=== PATIENT | female | born 1935 | race Caucasian/White ===

== ENCOUNTER 2016-03-09 14:54 | Emergency (ER) | payer BC ==
[~2016-03-09] VITALS: Ht 160 cm; Wt 82.6 kg
[~2016-03-09 14:54] MED LIST: CALC500C70 PO; CINN1CAP2 PO; DIFL0.0519 OPR; GLC500 PO; LISI-789 PO; MAGN400T6 PO; MULT-845 PO; NEPA0.6D OPR; NTRGSL/4 UT; OMEG10007 PO; POLYSOL4 OPR; SIMV40TA2 PO
[2016-03-09 14:55] VITALS: BP 162/66; TEMP 36.7; Ht 160 cm; Wt 82.6 kg
[2016-03-09] MEDS ORDERED: GLC/500 PO (15:14)
--- NOTE | 2016-03-09 15:37 | DIAGNOSTIC IMAGING REPORT ---
RIGHT WRIST 5 VIEWS CLINICAL HISTORY: Fall with wrist injury. FINDINGS: 5 views of the right wrist are obtained. No prior studies are available for comparison at the time of dictation. The skeletal structures are osteopenic. There is an impacted fracture of the distal radial metaphysis. There is no definite intra-articular extension. No significant angulation is identified. A tiny avulsion fracture is noted from the ulnar styloid. No additional fracture is seen. Mild degenerative change is present throughout the wrist. Overlying soft tissue edema is noted. IMPRESSION: 1. There is an impacted fracture of the distal right metaphysis with overlying soft tissue edema. 2. Tiny avulsion fracture from the ulnar styloid. Electronically signed by: Rio Pablo M.D. 03/09/2016 3:35 PM Dictated Date/Time: 03/09/2016 3:33 PM
--- NOTE | 2016-03-09 15:52 | EMERGENCY ROOM VISIT NOTE ---
ED Visit Note First contact with patient: 15:04 I have personally seen and evaluated the patient with the physician market research assistant. I agree with the diagnostic/management decisions and have personally been involved in these decisions and agree with the diagnosis.
[2016-03-09] MEDS ORDERED: HYDR-5688 PO (15:59)
[2016-03-09 16:08] VITALS: PULSE 62; O2SAT 97
[2016-03-09] MEDS ORDERED: METO25TA56 PO (17:32)
[2016-03-09] MEDS ORDERED: ASPI81TA21 PO (18:05)
--- NOTE | 2016-03-09 18:23 | EMERGENCY ROOM VISIT NOTE ---
ED Visit Note First contact with patient: 15:04 Chief Complaint: Right wrist pain. History of Present Illness: Ms. Moses is a 80-year-old white female who ambulates into the ED accompanied by her complaining of distal right radius pain. Patient reports less than 2 hours before she arrived in the emergency department she was walking down the street. She admits that she was not paying attention to where she was walking. She walked over a small curb, lost her balance and fell on her outstretched right hand. Since that time she is having pain over the distal radius. Currently she describes her pain as an achy and sharp sensation. She rates her discomfort 2/10. The pain is radiating into the lower forearm.her pain worsens with palpation and flexion, extension and pronation. She has not identified any alleviating factors related to the pain. She reports she has not taken a medications for pain but has been using ice. She denies any associated symptoms including lightheadedness and dizziness before the fall, striking her head at the time of the fall, loss of consciousness at the time of the fall, signs of head injury since the fall, right shoulder and elbow pain and hand weakness/numbness/tingling. Additionally she denies any previous significant injuries or surgeries to the right wrist or forearm. Review of Systems: As noted above in history of present illness. 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 Current Medications: Medications Dose Route/Sig Max Daily Dose Days Date Category Dose Instructions Glucophage (Metformin Hcl) 500 Mg Tab 500 Mg PO BID 03/09/16 Reported Systane (Polyethylene Glycol-Propylene) 1 Jonelle Jonelle 1 Drops OPR DIRECTED PRN 09/23/15 Reported Centrum Silver Adult 50+ (Multiple Vitamins W/ Minerals) 1 Tab Tab 1 Tab PO QAM 08/26/15 Reported Mag-Ox (Magnesium Oxide) 400 Mg Tab 400 Mg PO QAM 08/26/15 Reported [place]-3 (Fish Oil) 1 Ea Cap 1 Cap PO QAM 08/26/15 Reported Cinnamon 500 Mg Cap 1 Cap PO QPM 08/26/15 Reported Os-Camron 500 Plus D (Calcium/Vitamin D) Tab 1 Tab PO BID 08/26/15 Reported Zocor (Simvastatin) 40 Mg Tab 40 Mg PO QPM 03/28/13 Reported Nitrostat (Nitroglycerin) 0.4 Mg Tab 0.4 Mg UT PRN 03/28/13 Reported Zestril (Lisinopril) 2.5 Mg Tab 2.5 Mg PO QAM 03/28/13 Reported Lopressor (Metoprolol Tartrate) 25 Mg Tab 12.5 Mg PO QAM 03/27/13 Reported Ativan (Lorazepam) 1 Mg Tab 1 Mg PO PRN PRN 09/12/11 Reported TAKES BEFORE DENTIST PROCEDURE Ecotrin Or Generic (Aspirin) 81 Mg Tab 81 Mg PO QAM 09/12/11 Reported Allergies to Medications: Patient denies. Social History: Patient is currently retired; she lives with her and feels safe in her home environment; she denies tobacco use and admits to social alcohol use. Physical Examination: Vital Signs: Date Time Temp Pulse Resp B/P Pulse Ox O2 Delivery O2 Flow Rate FiO2 03/09/16 16:08 62 18 97 Room Air 03/09/16 14:55 36.7 68 18 162/66 95 Room Air GENERAL: 80-year-old female in mild distress due to pain, nontoxic-appearing, afebrile and hemodynamically stable. NEUROLOGICAL: Awake, alert and oriented to person, place and time. Answering questions appropriately and following commands. Normal gait. No focal motor or sensory deficits. SKIN: Warm, dry and pink. Small dime-sized abrasion noted over the distal ulna ; without bleeding. RIGHT UPPER EXTREMITY: No gross bony deformity. No tenderness in the shoulder, elbow or proximal forearm. Moderate tenderness over the distal radius with swelling and questionable deformity. Minimal tenderness over the distal styloid process of the ulna without bony deformity or swelling. Decreased range of motion in pronation of the forearm and flexion, extension and radial ulnar deviation of the wrist. Throughout the hand the skin was warm and pink and capillary refill is brisk. She was able to distinguish light sensations through all dermatomes of the hand. ED Course: Patient is assessed as noted above. Patient was offered pain medications and refused. Right Wrist X-Rays: were read by myself and the radiologist showing an impacted fracture to the distal right metaphysis of the radius and a tiny avulsion fracture of the ulnar styloid process. Patient was placed in an Ortho-Glass volar splint for her fracture and was given a sling. Patient was educated about tonight's findings and instructed on her treatment plan; she verbalizes understanding and agreement with this plan. Clinical Impression: Right distal radius impacted fracture. Status post fall. Disposition: Patient discharged home in stable condition accompanied by her ; prior to departure she was reassessed and subjectively reported she was feeling the same. Plan: Comfort measures were discussed with the patient including rest, ice, splint and sling use and a sliding pain medication scale of ibuprofen, acetaminophen and Creole; she was given appropriate narcotic precautions. Patient was encouraged to follow-up with her orthopedic doctor, Dr. Marquez; for definitive care and treatment. Patient was encouraged return the ED for worsening/uncontrolled pain, uncontrolled swelling, hand/fingers weakness/numbness/tingling or any new/ concerning symptoms.
[2016-03-09] MEDS ORDERED: ATV/1 PO (21:17)
[2016-06-17] MEDS ORDERED: COLLCAP PO (11:15)
[2016-06-17] MEDS ORDERED: NXM/40 PO (11:15)
[2016-11-03] MEDS ORDERED: PLV75 PO (12:24)
== END 2016-03-09 16:08 | disposition home or self-care (01) ==
LOC: C.EDB 14:55 → C.EDD 16:08
DX: S52.501A Unspecified fracture of the lower end of right radius, initial encounter for closed fracture (principal); W10.1XXA Fall (on)(from) sidewalk curb, initial encounter; E11.9 Type 2 diabetes mellitus without complications; K21.9 Gastro-esophageal reflux disease without esophagitis; Z98.51 Tubal ligation status; E78.5 Hyperlipidemia, unspecified

== ENCOUNTER → 2016-05-13 | Outpatient (CLI) | payer BC ==
[~2016-05-13] MED LIST changes: +ASPI81TA21 PO; +ATV/1 PO; +COLLCAP PO; -DIFL0.0519 OPR; +GLC/500 PO; -GLC500 PO; +HYDR-5688 PO; +METO25TA56 PO; -NEPA0.6D OPR; +NXM/40 PO; +PLV75 PO
--- NOTE | 2016-05-13 13:32 | MAMMOGRAPHY REPORT ---
BILATERAL DIGITAL SCREENING MAMMOGRAM WITH CAD: 05/13/2016 CLINICAL HISTORY: Routine screening. Patient has no complaints. TECHNIQUE: Current study was also evaluated with a Computer Aided Detection (CAD) system. Bilater al CC and MLO views are obtained. COMPARISON: Comparison is made to exams dated: 05/13/2015 mammogram, 05/12/2014 mammogram, 05/09/2013 mammogram, 05/08/2012 mammogram, 05/06/2011 mammogram, and 04/29/2010 mammogram - [facility]. BREAST COMPOSITION: There are scattered areas of fibroglandular density in both breasts. FINDINGS: No suspicious masses, calcifications, or areas of architectural distortion are noted in e ither breast. There has been no significant interval change compared to prior exams. IMPRESSION: ACR BI-RADS CATEGORY 1: NEGATIVE There is no mammographic evidence of malignancy. A 1 year screening mammogram is recommended. The p atient will receive written notification of the results. Approximately 10% of breast cancers are not detected with mammography. A negative mammographic repor t should not delay biopsy if a clinically suggestive mass is present. Xuan Rincon M.D. /:05/13/2016 10:14:28 Plateman: Radha Tena, [facility] letter sent: Normal 1/2 BI-RADS Code: ACR BI-RADS Category 1: Negative
== END | disposition home or self-care (01) ==
LOC: C.MAMM 09:51
PROVIDERS: ATTEND Obstetrics & Gynecology
DX: Z12.31 Encounter for screening mammogram for malignant neoplasm of breast (principal)

== ENCOUNTER → 2016-06-22 | Day surgery (SDC) | payer BC ==
[2016-06-17 11:20] VITALS: Ht 163.8 cm; Wt 79.1 kg
[~2016-06-22] VITALS: Ht 163.8 cm; Wt 79.1 kg
[~2016-06-22] MED LIST changes: +ACETAMINOPHEN/CODEINE 300/30MG TAB PO PRN; +ATROPINE SULFATE 0.1 MG/ML 5ML SYR IV PRN; +BUPIVACAINE 0.5 % 5 MG/1 ML PF 10ML VIAL ONE; +CEFAZOLIN 1000MG/55 ML D5W IV SCH; +EpHEDrine SULFATE INJ 50 MG/ML AMP IV PRN; +FENTANYL CITRATE INJ 50 MCG/1 ML 2 ML VIAL IV PRN; +FENTANYL CITRATE INJ 50 MCG/1 ML 2 ML VIAL ONE; +FLUMAZENIL 0.1 MG/1 ML 10 ML VIAL IV PRN; -HYDR-5688 PO; +LABETALOL HCL IV 5 MG/ML 20ML IV PRN; +LACTATED RINGER'S 1000ML 1,000 ML IV SCH; +LIDOCAINE HCL 2% LOCAL 20 ML VIAL ONE; +LPT/40 PO; +MIDAZOLAM HCL 1 MG/ML 2ML VIAL ONE; +NALOXONE HCL 0.4 MG/1 ML VIAL/CARP IV PRN; +ONDANSETRON INJ 2 MG/ML 2 ML VIAL IV PRN; +ONDANSETRON INJ 2 MG/ML 2 ML VIAL ONE; +PROMETHAZINE HCL INJ 12.5 MG in SODIUM CHLORIDE 0.9% 50ML 50 ML IV PRN; +SODIUM CHLORIDE 0.9% 1000ML 1,000 ML IV SCH
--- NOTE | 2016-06-22 07:01 | History & Physical Bridge - SC ---
H&P Re-Evaluation Bridge Note: I have examined the patient, reviewed the History & Physical and in the interval since the performance of the History & Physical I have noted the following changes of clinical significance: No changes noted
--- NOTE | 2016-06-22 08:21 | Discharge Instructions-SurgCtr ---
Discharge Instructions Date of Service June 22, 2016. Visit Reason for Visit: Right Carpal Tunnel Syndrome, Pain Discharge Discharge Diagnosis / Problem: right carpal tunnel syndrome Discharge Goals Goal(s): Decrease discomfort, Improve function, Therapeutic intervention Activity Recommendations Activity Limitations: per Instructions/Follow-up section limited use of right hand Anesthesia . Post Anesthesia Instructions: If you have had General Anesthesia or IV Sedation: * Do not drive today. * Resume driving when surgeon permits. * Do not make important decisions or sign legal documents today. * Call surgeon for: 1. Temperature elevations greater than 101 degrees F. 2. Uncontrollable pain. 3. Excessive bleeding. 4. Persistent nausea and vomiting. 5. Medication intolerance (nausea, vomiting or rash). * For nausea and vomiting use only clear liquids such as: tea, soda, bouillon until nausea subsides, then gradually increase diet as tolerated. * If you have any concerns or questions, call your surgeon's office. If physician is unavailable and it is an emergency, call 911 or go to the nearest emergency room. . Instructions / Follow-Up Instructions / Follow-Up MEDICATIONS: * Resume previous medications unless instructed otherwise by your surgeon. * Always take pain medication on a full stomach or with food to avoid upset stomach. * Do not drink alcohol or drive while taking narcotics. * Ibuprofen or Tylenol may be taken if narcotic not needed. SPECIAL CARE INSTRUCTIONS: __ None __ Keep extremity elevated and iced x 48 hours; apply ice 20-30 minutes 8-10 times/day. May remove at night. __ Sling __24 hrs/day __ Remove at night __ Shoulder Immobilizer __ 24 hrs/day __ Remove at night _x_ Dressing _x_ Maintain until seen in office, may shower with plastic over site __ Remove dressings in 24-48 hours and then may shower __ Cover incisions with band-aids after showering __ Do not remove steri-strips Call physician if chills or temperature rises above 102 degrees or pain unrelieved by prescribed pain medications at . follow up in 2 weeks . Diet Recommendations Home Diet: resume previous diet Procedures Procedures Performed: Right Carpal Tunnel Release Pending Studies Studies pending at discharge: no Medical Emergencies . Who to Call and When: Medical Emergencies: If at any time you feel your situation is an emergency, please call 911 immediately. . Non-Emergent Contact Non-Emergency issues call your: Surgeon . . "Provider Documentation" section prepared by Dima Velazquez. .
--- NOTE | 2016-06-22 08:21 | [facility] Post Operative Brief Note ---
Immediate Operative Summary Operative Date June 22, 2016. Pre-Operative Diagnosis Right Carpal Tunnel Syndrome Post-Operative Diagnosis same Procedure(s) Performed Right Carpal Tunnel Release Surgeon Dr. Derrick Marquez Booky Surgeon(s) Luis A Velazquez PA-C Estimated Blood Loss Minimal Findings Right Carpal Tunnel Syndrome Specimens none Anesthesia Local with IV Sedation Complication(s) None Disposition Recovery Room / PACU
[2016-06-22 08:22] VITALS: TEMP 36.3
--- NOTE | 2016-06-22 08:33 | Anesthesia Progress Nt - [facility] ---
Anesthesia Post Op Note Date & Time June 22, 2016 at 08:33 Vital Signs Pain Intensity: 0 Vital Signs Past 12 Hours Date Time Temp Pulse Resp B/P Pulse Ox O2 Delivery O2 Flow Rate FiO2 06/22/16 08:22 36.3 49 16 148/79 95 Room Air 06/22/16 06:57 36.4 71 18 171/95 97 Room Air Notes Mental Status: alert / awake / arousable, participated in evaluation Pt Amnestic to Procedure: Yes Nausea / Vomiting: adequately controlled Pain: adequately controlled Airway Patency, RR, SpO2: stable & adequate BP & HR: stable & adequate Hydration State: stable & adequate Anesthetic Complications: no major complications apparent
--- NOTE | 2016-06-22 08:38 | OPERATIVE REPORT ---
DATE OF OPERATION: 06/22/2016 PREOPERATIVE DIAGNOSIS: Right carpal tunnel syndrome. POSTOPERATIVE DIAGNOSIS: Same. PROCEDURE PERFORMED: Right carpal tunnel release. SURGEON: Catarino Marquez M.D. STEAM CONDITIONING OPERATOR: Dima Velazquez PA-C. COMPLICATIONS: None. ESTIMATED BLOOD LOSS: Minimal. TOURNIQUET TIME: 5 minutes at 250 mmHg. ANESTHESIA: Local with IV sedation. OPERATIVE INDICATIONS: The patient is a 81-year-old white female who has had a fairly long history of right hand carpal tunnel-like symptoms. She broke her wrist in February and her symptoms have progressed since then. It has not resolved. She had nerve studies that revealed moderate carpal tunnel syndrome. The patient would like to proceed with surgical treatment. The patient is a patient of Dr. Martinez, my partner. He was unavailable to do the surgery when she desired, so she elected to have me perform the surgery. OPERATION AND FINDINGS: OPERATIVE PROCEDURE: The patient taken to the operating room, identified and placed on the operating table in supine position. All contact areas were appropriately padded. IV antibiotics were provided by anesthesia team. Right forearm tourniquet was placed. Some IV sedation was provided. 9 mL of a 50:50 combination of 0.5% Marcaine and 2% lidocaine were then injected in and around the proposed incision site. The right hand was then prepped and draped in the usual sterile fashion. The right arm was elevated and exsanguinated with Esmarch and tourniquet was placed at 250 mmHg. A 2.5 cm incision was made in the palm just ulnar to the palmaris longus tendon. Blunt dissection was carried down through the subcutaneous tissue down to the level of the palmar fascia. The palmar fascia was incised longitudinally in line with skin incision. The underlying transverse carpal ligament was identified. It was transected distally with use of a [place]hire blade knife and then bluntly spread. Attention was then drawn proximally. Blunt dissection was carried out above and below the ligament proximally. The ligament was transected for a minimum distance of 3 cm proximal to the wrist flexion crease. The ligament was bluntly spread and found to be completely released. The wound was irrigated with normal saline. The tourniquet was let down for a tourniquet time of 5 minutes. Hemostasis was assured with use of electrocautery. The wound was once again irrigated and the skin was then closed with 5-0 nylon suture in a horizontal mattress fashion. The hand was then cleaned and dried and a sterile dressing of Xeroform, 4 x 4, sterile cast padding and Thang bandage were applied. The patient then transferred to the recovery room in stable condition. The patient tolerated the procedure well with no complications. All needle and sponge counts were correct at the end of the operation. I attest to the content of the Intraoperative Record and any orders documented therein. Any exceptio ns are noted below.
[2016-06-22 09:00] VITALS: BP 143/83; PULSE 51; O2SAT 97
== END | disposition home or self-care (01) ==
LOC: X.SURG 06:45
PROVIDERS: ATTEND Orthopaedic Surgery Sports Medicine
DX: G56.01 Carpal tunnel syndrome, right upper limb (principal); E78.00 Pure hypercholesterolemia, unspecified; E11.9 Type 2 diabetes mellitus without complications; I10 Essential (primary) hypertension

== ENCOUNTER → 2016-10-25 | Outpatient (CLI) | payer BC ==
[~2016-10-25] MED LIST changes: -ACETAMINOPHEN/CODEINE 300/30MG TAB PO PRN; -ATROPINE SULFATE 0.1 MG/ML 5ML SYR IV PRN; -BUPIVACAINE 0.5 % 5 MG/1 ML PF 10ML VIAL ONE; -CEFAZOLIN 1000MG/55 ML D5W IV SCH; -EpHEDrine SULFATE INJ 50 MG/ML AMP IV PRN; -FENTANYL CITRATE INJ 50 MCG/1 ML 2 ML VIAL IV PRN; -FENTANYL CITRATE INJ 50 MCG/1 ML 2 ML VIAL ONE; -FLUMAZENIL 0.1 MG/1 ML 10 ML VIAL IV PRN; -LABETALOL HCL IV 5 MG/ML 20ML IV PRN; -LACTATED RINGER'S 1000ML 1,000 ML IV SCH; -LIDOCAINE HCL 2% LOCAL 20 ML VIAL ONE; -LPT/40 PO; -MIDAZOLAM HCL 1 MG/ML 2ML VIAL ONE; -NALOXONE HCL 0.4 MG/1 ML VIAL/CARP IV PRN; -ONDANSETRON INJ 2 MG/ML 2 ML VIAL IV PRN; -ONDANSETRON INJ 2 MG/ML 2 ML VIAL ONE; -PROMETHAZINE HCL INJ 12.5 MG in SODIUM CHLORIDE 0.9% 50ML 50 ML IV PRN; -SODIUM CHLORIDE 0.9% 1000ML 1,000 ML IV SCH
--- NOTE | 2016-10-25 16:00 | DIAGNOSTIC IMAGING REPORT ---
TWO VIEW CHEST CLINICAL HISTORY: Dyspnea on exertion. FINDINGS: PA and lateral chest radiographs are compared to study dated 09/12/2011. The heart is mildly enlarged and there is atherosclerotic calcification of the thoracic aorta. The pulmonary vasculature is noncongested. The lungs and pleural spaces are clear. There is no pneumothorax. The skeletal structures are osteopenic. Degenerative change is noted in the thoracic spine. IMPRESSION: Mild cardiac enlargement with no active disease in the chest. Electronically signed by: Rio Pablo M.D. 10/25/2016 3:46 PM Dictated Date/Time: 10/25/2016 3:45 PM
== END | disposition home or self-care (01) ==
LOC: C.RAD 15:18
PROVIDERS: ATTEND Internal Medicine Cardiovascular Disease
DX: R06.09 Other forms of dyspnea (principal); R94.39 Abnormal result of other cardiovascular function study; I25.10 Atherosclerotic heart disease of native coronary artery without angina pectoris

== ENCOUNTER → 2016-11-03 | Day surgery (SDC) | payer BC ==
[~2016-11-03] VITALS: Ht 162.6 cm; Wt 78.0 kg
[~2016-11-03] MED LIST changes: +ACETAMINOPHEN 325 MG TAB PO PRN; +ASPIRIN 81 MG ECTAB PO SCH; +ATROPINE SULFATE 0.1 MG/ML 5ML SYR IV PRN; +CALCIUM 600MG + VIT D 400 IU TAB PO SCH; +CEROVITE ADV FORMULA TAB PO SCH; +CLOPIDOGREL BISULFATE 300 MG TAB PO ONE; +CLOPIDOGREL BISULFATE 75 MG TAB PO SCH; +EPTIFIBATIDE 0.75 MG/ML 75MG VIAL IV ONE; +EPTIFIBATIDE 2 MG/ML 10 ML VIAL IV ONE; +EPTIFIBATIDE BOLUS / DRIP IV SCH; +FENTANYL CITRATE INJ 50 MCG/1 ML 2 ML VIAL ONE; +HEPARIN SOD (PORCINE) 1000 UNIT/ML 10 ML VIAL ONE; +LISINOPRIL 2.5 MG TAB PO SCH; +LORAZEPAM 1 MG TAB PO PRN; +LORAZEPAM INJ 0.5 MG in SYRINGE 0 ML IV PRN; +MAGNESIUM OXIDE 400 MG TAB PO SCH; +METOPROLOL TARTRATE 25 MG TAB PO SCH; +MIDAZOLAM HCL 1 MG/ML 2ML VIAL ONE; +MoRPHine SULFATE 2 MG/ML CARP IV PRN; +NITROGLYCERIN 0.4 MG SL PER TAB CHARGE UT PRN; +NITROGLYCERIN/D5W 100MCG/ML 20ML SYR ONE; +NiCARDipine HCL INJ 2.5 MG/ML 10 ML AMP ONE; +OMEGA-3 (PURIFIED FISH OIL) 1 GM CAP PO SCH; +SIMVASTATIN 40 MG TAB PO SCH; +SODIUM CHLORIDE 0.9% 1000ML 1,000 ML IV SCH
[2016-11-03 07:15] VITALS: BP 145/61; PULSE 59; TEMP 36.7; O2SAT 98; Ht 162.6 cm; Wt 78.0 kg
--- NOTE | 2016-11-03 10:17 | [facility] Post Operative Brief Note ---
Preliminary Procedure Note Procedure Date Nov 03, 2016. Pre-Procedure Diagnosis Angina, Positive Stress Test AUC Score 7 Post-Procedure Diagnosis Severe CAD Procedure(s) Performed Coronary Angiography, Left Heart Cath School Bus Operator Dr. Nilesh Rutledge Financial Services Sales Representative(s) Sunny Soler Estimated Blood Loss <15cc Medication(s) Fentanyl (12.5 mcg IV), Heparin (5000u IV), Nicardipine (300mcg intraarterial after sheath inserted), Versed (1mg IV), Lidocaine 1% (local infiltration) Preliminary Findings Left dominant coronary anatomy LM mild calcification LAD Type II long proximal calcification with discrete 80% proximal to diagonal, prior mid LAD stent LCX large dominant with mild irregularities RCA non dominant with 2 large RV branches LVEDP 5 Recommendations PCI without planned CABG Specimens None Fluids (cc crystalloids) 50 Anesthesia Start 916 End 955 Jessy Paris RN Procedural Complication(s) None Disposition
--- NOTE | 2016-11-03 11:00 | CARDIAC CATH REPORT ---
INDICATIONS: Crescendo angina. PROCEDURE: Left cardiac catheterization, coronary angiography. BRIEF CARDIAC HISTORY: The patient is a 81-year-old female with prior history of known coronary disease with prior mid left anterior descending stenting in 2011, represented recently with symptoms of increasing chest pressure, pain, shortness of breath and now occurring with minimal exertion, symptoms CC class 3+ and limiting. Stress testing was notable for stress induced lateral ischemia by EKG criteria. Since stress test is performed, symptoms have accelerated. She was referred for diagnostic cardiac catheterization. She has not manifested signs or symptoms of congestive heart failure. ACCESS: Right radial artery. CATHETERS: A 6-Northern Irish long glide sheath, 5-Northern Irish brachial 3.5, and 5-Northern Irish straight pigtail. CONTRAST: Nonionic x71 mL. IV FLUIDS: 50 mL normal saline. IV CONTRAST: 71 mL of Visipaque. RADIATION EXPOSURE: 5.2 minutes of fluoroscopy, 1026 milligrays, DAP score 6797. SEDATION TIME: Start time 0917. End time 0956. SUPERVISING RN: Jessy Paris. SEDATION: Versed 1 mg IV, fentanyl 12.5 mcg IV. ADDITIONAL MEDICATIONS: Local infiltration of access site was performed with 1% lidocaine. Following are arterial sheath insertion, the patient received intra-arterial injection of 300 mcg of nicardipine. After central access gained of catheters, 5000 units IV heparin was administered. COMPLICATIONS: None. RESULTS: CORONARY ANGIOGRAPHY: LEFT MAIN: Left main is moderately large in caliber and bifurcates to give rise to left anterior descending and dominant left circumflex with dominant left common coronary anatomy. There is mild calcification in the left main. LEFT ANTERIOR DESCENDING: Left anterior descending is type 2 in distribution, gives rise to a trivial first diagonal and a large second diagonal branch at the end of its proximal third. The vessel then courses as a moderate caliber vessel that terminates at the apex within the left anterior descending area of prior stenting just after the large second diagonal was patent. There is a long area of calcification in the proximal left anterior descending terminating in a discrete 80% stenosis just proximal to the prior stent. LEFT CIRCUMFLEX: Left circumflex is dominant in distribution, gives rise to 2 marginal branches and a large posterolateral and a large posterior descending artery. Within the left circumflex, there are mild luminal irregularities. RIGHT CORONARY ARTERY: The right coronary artery is nondominant and consists of 2 right ventricular branches. Within the right coronary artery, there are moderate narrowings of 30% in its proximal portion. LEFT VENTRICULAR ANGIOGRAPHY: LV angiography not performed. HEMODYNAMICS: Initial aortic root pressure was 117/49 with a mean of 76. LV pressure was 113/1 with an LVEDP of 5. Following completion of imaging, aortic root pressure was 127/46 with a mean of 75. FINAL IMPRESSIONS: 1. Left dominant coronary anatomy. 2. Patent mid left anterior stent. 3. Calcified proximal left anterior descending culminating in a discrete 80% stenosis. 4. Normal left end diastolic pressures. RECOMMENDATIONS: The patient will be referred same setting for coronary intervention in the left anterior descending. [facility]
--- NOTE | 2016-11-03 11:48 | Procedure Note ---
Post-Mod Sedation Assessment General Date of Moderate Sedation Nov 03, 2016. Vital Signs: Vital Signs Past 12 Hours Date Time Temp Pulse Resp B/P (MAP) Pulse Ox O2 Delivery O2 Flow Rate FiO2 11/03/16 11:30 58 16 130/65 (86) 98 Room Air 11/03/16 11:15 55 16 122/65 (84) 98 Room Air 11/03/16 11:00 55 16 104/64 (77) 99 Mask 3 11/03/16 07:15 36.7 59 18 145/61 98 Room Air Review - Discharge Criteria Vital Signs Stable: Yes Alert/Oriented/Conversant: Yes Returned to Baseline Mental St: Yes Nausea Absent/Minimal: Yes Pain/Discomfort/Absent/Minimal: Yes Normal/Baseline Respirations: Yes Active Bleeding?: No Pt Received D/C Instructions: Yes Specific Proced. D/C Criteria Distal Pulses Present (Cardiac: Yes Groin site assessed-Card Cath: N/A Voided Prior To Discharge: Yes Discharged Patients Adult Escort/Transportation: Yes
--- NOTE | 2016-11-03 12:18 | Cardiac Catheterization ---
Procedure Note Procedure Date Nov 03, 2016. Pre-Procedure Diagnosis Angina, Positive Stress Test, CAD AUC Score 9 for PCI Post-Procedure Diagnosis Successful PCI Procedure(s) Performed Coronary Angiography, PTCA, Drug Eluting Stent Bias Binding Folder Dr. Clarke Baker Test(s) Sunny oSlerRTR Estimated Blood Loss 25 ml Medication(s) Clopidogrel (600 mg PO post PCI), Fentanyl, Heparin, Integrilin, Nicardipine ( intra arterial and intracoronary), Versed Summary of Findings Clinical indications: Progressively worsening dyspnea on exertion. Class 3 symptoms. History of coronary artery disease. Status post 2.5 x 8 mm Xience drug-eluting stent mid LAD August 14, 2011. A moderate proximal LAD stenosis was noted at that time. Despite medical therapy the patient has recently had progressively worsening dyspnea on exertion. This was her anginal equivalent symptom. Diagnostic coronary angiography performed by Dr. Nilesh Rutledge prior to this procedure revealed an 80% proximal LAD stenosis prior to the origin of the 1st LAD diagonal. In light of her progressively worsening symptoms and the angiographic findings percutaneous coronary intervention was indicated. Catheterization site: 6 Mongolian long glide sheath right radial artery. This had been inserted at the time of diagnostic cardiac catheterization. Interventional equipment: 6 Mongolian EBU 3.75 guide catheter,Leslie guidewire, Cano NC Trek 2.5 x 8 mm noncompliant balloon dilatation catheter, Cano 3 3 x 12 mm Xience drug-eluting stent. Interventional protocol: Intravenous heparin and Integrilin were administered. A therapeutic activated clotting time was documented. PTCA was 1st performed to the proximal LAD stenosis with the noncompliant balloon. Two inflations to maximum pressure of 12 atmospheres maximum duration of 20 seconds were performed to the proximal LAD stenosis. The balloon fully inflated. The stent was then deployed at a pressure of 10 atmospheres for duration of 45 seconds. Follow-up angiography was performed with the balloon still in place inside of the stent. A 2nd balloon inflation was performed with the stent delivery balloon to a pressure of 14 atmospheres for duration of 15 seconds. Follow-up angiography was then performed from orthogonal projections with guidewire in place and then guidewire withdrawn. Findings: Fluoroscopy revealed proximal LAD calcifications. 80% discrete proximal LAD stenosis. Prior to this stenosis there was diffuse mild narrowing in the proximal LAD. Following deployment of the stent and post stent deployment balloon inflations the residual stenosis in the proximal LAD was 0%. There was no evidence of dissection, thrombus, perforation, or distal embolic event. KATERIN 3 flow was present prior to intervention and following intervention. The patient was hemodynamically stable throughout the procedure. At the completion of procedure she had no anginal-type complaints. No dyspnea. Conclusion: Severe proximal LAD stenosis. Successful PCI to the proximal LAD stenosis with deployment of 3 x 12 mm Xience drug-eluting stent. No residual stenosis. No coronary or cardiac complications evident thus far. No vascular complications. Plan: The patient will be recovered in the clinical laboratory manager recovery unit. Post PCI electrocardiogram, metabolic profile, and CBC will be assessed. She was given a loading dose of oral clopidogrel 600 mg post PCI. She will remain on intravenous Integrilin for 4 hours postprocedure. She will remain on aspirin, Thang inhibitor, statin, and beta-doyle therapy. If she is stable she will be discharged home this evening. She will have continued cardiology follow-up at the [facility] outpatient [facility]iology [facility] in [place]. Hemodynamics Rest Ao: 117/49/76 mm Hg Final Ao: 104/44/69 mm Hg LV: NA Recommendations Medical therapy and/or Counseling, PCI without planned CABG Specimens None Radiation Exposure (mGy) Total of 3559 for both PCI and diagnostic procedures Contrast (mls) Total of 151ml Visipaque for both procedures Fluids (cc crystalloids) Total 175 Drains None Anesthesia Moderate sedation with IV Versed and fentanyl( for PCI: start [id number]) Procedural Complication(s) None Disposition Insulation Power Unit Tender Holding/Recovery ACC Data Cardiac Status Clinical evaluation leading to the procedure CAD Presntation: Unstable angina, Positive Stress Test Anginal Classification: CCS III Heart Failure: No Cardiogenic Shock w/in 24Hrs: No Cardiac Arrest w/in 24Hrs: No Imaging studies past 6 months: Yes Standard Exercise Stress Test: Yes - Positive, Risk/Extent of Ischemia (Low) Stress Echocardiogram: Yes - Negative Stress Testing w/SPECT MPI: No Cardiac CTA: No Coronary Anatomy Dominant: Left (Please see Dr. Rutledge's diagnostic cardiac cath report) Left Ventricular Angiography EF (%): NA Diagnostic Physician's Name: Nilesh Rutledge M.D. Status: Urgent Closure Device Percutaneous Entry Location: Radial Closure Device: Radial Band Recommendations: Medical therapy and/or Counseling, PCI without planned CABG PCI Indication: Unstable Angina, Angina despite med therapy, + Stress Test Lesion Segment Name: Proximal LAD Culprit Artery: Yes Stenosis Prior to Rx (%): 80 Chronic Total Occlusion: No IVUS: No FFR: No Pre-Procedure KATERIN Flow: 3 Lesion Complexity: Non-High/Non-C Lesion Length (mm): 4 Thrombus Present: No Bifurcation Lesion: No Guidewire Across Lesion: Yes Guidewire: Stenosis Post-Procedure (%): 0 Post-Procedure KATERIN Flow: 3 Device(s) Deployed: Yes Type of Device(s): Cano Xience 3 X 12 mm MARY Intraprocedure Events Significant Dissection: No Perforation: No
--- NOTE | 2016-11-03 12:29 | Discharge Instructions ---
Discharge Instructions Procedure Procedure Date: Nov 03, 2016. Reason for Visit: Cad Dr Aamir Douglas Do. Discharge Discharge Date: Nov 03, 2016. Discharge Diagnosis: CAD Proximal LAD stent Last Recorded Wt (Kilograms): 78 Medications Stopped Medication(s): Don't restart metformin until Monday11/06/16. Anesthesia Post Anesthesia Instructions: If you have had General Anesthesia or IV Sedation: * Do not drive today. * Resume driving when surgeon permits. * Do not make important decisions or sign legal documents today. * Call surgeon for: 1. Temperature elevations greater than 101 degrees F. 2. Uncontrollable pain. 3. Excessive bleeding. 4. Persistent nausea and vomiting. 5. Medication intolerance (nausea, vomiting or rash). * For nausea and vomiting use only clear liquids such as: tea, soda, bouillon until nausea subsides, then gradually increase diet as tolerated. * If you have any concerns or questions, call your surgeon's office. If physician is unavailable and it is an emergency, call 911 or go to the nearest emergency room. Instructions Activity Recommendations: limitations as noted below (No lifting over 2 pounds till 11/06/16), lifting limitation (No greater than 2 pounds till 11/06/16.), shower/bathe limit (You may shower on Monday11/04/16.) Recommended Home Diet: low sodium, low cholesterol, diabetes diet Allergies: Coded Allergies: No Known Allergies (Unverified , 06/22/16) Provider Instructions Call 911 for any acute chest pain or shortness of breath. Call [facility] cardiology clinic or Dr. Clarke ([phone]) for any questions or problems with procedure. Follow Up Follow-up with: [facility] cardiology clinic as scheduled. Salma [place] Recommendations: Call your doctor if: * Temperature above 101 degrees * Pain not relieved by pain medicine ordered * There is increased drainage or redness from any incision * You have any unanswered questions or concerns. Your Doctors Instructions noted above were prepared by provider Osito Clarke. Patient Signature Section: Patient Instructions Signature Page Brooke Moses Patient (or Guardian) Signature/Date: I have read and understand the instructions given to me by my caregivers. Caregiver/RN/Doctor Signature/Date: The above-named patient and/or guardian has received patient instructions on this date. + Original Patient Signature Page (only) stays with chart. Please make copy for patient.
--- NOTE | 2016-11-03 13:05 | Discharge Instructions ---
Discharge Instructions Procedure Procedure Date: Nov 03, 2016. Reason for Visit: Cad Dr Rutledge To Do. Discharge Discharge Date: Nov 03, 2016. Discharge Diagnosis: Crescendo angina Last Recorded Wt (Kilograms): 78 Medications Stopped Medication(s): Don't restart metformin until Monday11/06/16. Anesthesia Post Anesthesia Instructions: If you have had General Anesthesia or IV Sedation: * Do not drive today. * Resume driving when surgeon permits. * Do not make important decisions or sign legal documents today. * Call surgeon for: 1. Temperature elevations greater than 101 degrees F. 2. Uncontrollable pain. 3. Excessive bleeding. 4. Persistent nausea and vomiting. 5. Medication intolerance (nausea, vomiting or rash). * For nausea and vomiting use only clear liquids such as: tea, soda, bouillon until nausea subsides, then gradually increase diet as tolerated. * If you have any concerns or questions, call your surgeon's office. If physician is unavailable and it is an emergency, call 911 or go to the nearest emergency room. Instructions Activity Recommendations: limitations as noted below (No lifting over 2 pounds till 11/06/16), lifting limitation (No greater than 2 pounds till 11/06/16.), shower/bathe limit (You may shower on Monday11/04/16.) Recommended Home Diet: low sodium, low cholesterol, diabetes diet Allergies: Coded Allergies: No Known Allergies (Unverified , 06/22/16) Provider Instructions ACTIVITY RECOMMENDATIONS: Excess manipulation of the wrist should be avoided for the next 24-48 hours. * No lifting over 2 pounds (approximately a 1/2 gallon of milk) with the utilized arm for 24 hours. * No strenuous activity such as bowling or tennis for 3 days. * Keep the site of the procedure covered with a bandage for 24 hours. *You may shower the day after the procedure. Do not take a tub bath or submerge the puncture site in water for the next 3 days. *Do not operate any motorized equipment for 3 days. SPECIAL CARE INSTRUCTIONS: The site may be slightly bruised and sore following your procedure. Should any of the following occur, contact the DrRegan who performed your procedure. 1. Redness/inflammation, swelling, chills, or fever, or colored drainage at procedure site within 3-7 days after your procedure. 2. Coldness, discoloration, ongoing numbness, severe pain, or swelling. Expect mild tingling of hand and tenderness at the puncture site for up to three days. If this persists beyond three days, or other symptoms develop, notify the Dr. who performed your procedure. BLEEDING: If the procedure site on your wrist begins to bleed, do not panic 1. Place 1 or 2 fingers firmly just slightly above the insertion site to stop the bleeding. You may be able to feel your pulse as you hold pressure. 2. Lift your finger after 5 minutes to see if the bleeding has stopped. 3. Once the bleeding has stopped, gently wipe the wrist area clean with a bandage. * If the bleeding from your wrist does not stop after 10 minutes, or if there is a large amount of bleeding or spurting, call 911 (do not drive yourself to the hospital). SKIN IRRITATION: * You may experience some redness and/or swelling in the area where radiation was administered. If any skin irritation occurs, please contact your family physician. FOLLOW UP VISIT: Keep any scheduled doctor appointments. Follow Up Follow-up with: Dr Rutledge 1-2 weeks Salma [place] Recommendations: Call your doctor if: * Temperature above 101 degrees * Pain not relieved by pain medicine ordered * There is increased drainage or redness from any incision * You have any unanswered questions or concerns. Your Doctors Instructions noted above were prepared by provider Nilesh Rutledge. Patient Signature Section: Patient Instructions Signature Page Brooke Moses Patient (or Guardian) Signature/Date: I have read and understand the instructions given to me by my caregivers. Caregiver/RN/Doctor Signature/Date: The above-named patient and/or guardian has received patient instructions on this date. + Original Patient Signature Page (only) stays with chart. Please make copy for patient.
[2016-11-03 15:03] LABS: BASO % 0.6 %; BASO ABS # 0.03 K/uL (0-0.2); EOS % 2.9 %; HEMATOCRIT 33.9 % (37-47); IG% 0.2 %; LYMPH % 43.2 %; LYMPH ABS # 2.11 K/uL (1.2-3.4); MEAN CELL VOLUME 85.6 fL (80-100); MEAN CORPUSCULAR HEMOGLOBIN 27.8 pg (25-34); MEAN PLATELET VOLUME 9.9 fL (7.4-10.4); MONO % 8.2 %; NEUT % 44.9 %; PLATELET COUNT 171 K/uL (130-400); RED BLOOD COUNT 3.96 M/uL (4.2-5.4); WHITE BLOOD COUNT 4.88 K/uL (4.8-10.8)
[2016-11-03 15:08] LABS: COMPLETE YES; MEAN CORPUSCULAR HGB CONC 32.4 g/dl (32-36)
[2016-11-03 15:27] LABS: BUN/CREATININE RATIO 19.8 (10-20); CALCIUM 8.4 mg/dl (8.5-10.1); CREATININE 0.83 mg/dl (0.60-1.20); POTASSIUM 4.3 mmol/L (3.5-5.1)
[2016-11-03 16:00] VITALS: BP 120/53; PULSE 60; O2SAT 98
== END ==
LOC: C.CATH 06:58 → CANBEDREQ 11:26
PROVIDERS: ATTEND Internal Medicine Cardiovascular Disease
DX: I25.10 Atherosclerotic heart disease of native coronary artery without angina pectoris (principal); R06.09 Other forms of dyspnea; R94.39 Abnormal result of other cardiovascular function study; E78.5 Hyperlipidemia, unspecified; I10 Essential (primary) hypertension; E11.9 Type 2 diabetes mellitus without complications; Z79.899 Other long term (current) drug therapy; Z79.84 Long term (current) use of oral hypoglycemic drugs; Z79.82 Long term (current) use of aspirin; Z82.49 Family history of ischemic heart disease and other diseases of the circulatory system; Z82.0 Family history of epilepsy and other diseases of the nervous system
CPT/HCPCS: 93458; C9600

== ENCOUNTER → 2017-01-25 | Outpatient (CLI) | payer BC ==
[~2017-01-25] MED LIST changes: -ACETAMINOPHEN 325 MG TAB PO PRN; -ASPIRIN 81 MG ECTAB PO SCH; -ATROPINE SULFATE 0.1 MG/ML 5ML SYR IV PRN; -CALCIUM 600MG + VIT D 400 IU TAB PO SCH; -CEROVITE ADV FORMULA TAB PO SCH; -CLOPIDOGREL BISULFATE 300 MG TAB PO ONE; -CLOPIDOGREL BISULFATE 75 MG TAB PO SCH; -EPTIFIBATIDE 0.75 MG/ML 75MG VIAL IV ONE; -EPTIFIBATIDE 2 MG/ML 10 ML VIAL IV ONE; -EPTIFIBATIDE BOLUS / DRIP IV SCH; -FENTANYL CITRATE INJ 50 MCG/1 ML 2 ML VIAL ONE; -HEPARIN SOD (PORCINE) 1000 UNIT/ML 10 ML VIAL ONE; -LISINOPRIL 2.5 MG TAB PO SCH; -LORAZEPAM 1 MG TAB PO PRN; -LORAZEPAM INJ 0.5 MG in SYRINGE 0 ML IV PRN; +LPT/40 PO; -MAGNESIUM OXIDE 400 MG TAB PO SCH; -METOPROLOL TARTRATE 25 MG TAB PO SCH; -MIDAZOLAM HCL 1 MG/ML 2ML VIAL ONE; -MoRPHine SULFATE 2 MG/ML CARP IV PRN; -NITROGLYCERIN 0.4 MG SL PER TAB CHARGE UT PRN; -NITROGLYCERIN/D5W 100MCG/ML 20ML SYR ONE; -NiCARDipine HCL INJ 2.5 MG/ML 10 ML AMP ONE; -OMEGA-3 (PURIFIED FISH OIL) 1 GM CAP PO SCH; -SIMV40TA2 PO; -SIMVASTATIN 40 MG TAB PO SCH; -SODIUM CHLORIDE 0.9% 1000ML 1,000 ML IV SCH
== END | disposition home or self-care (01) ==
LOC: C.LABFOXMH 15:29
PROVIDERS: ATTEND Internal Medicine Hospice and Palliative Medicine
DX: R35.0 Frequency of micturition (principal)

== ENCOUNTER → 2017-04-26 | Outpatient (CLI) | payer BC ==
--- NOTE | 2017-04-26 09:10 | DIAGNOSTIC IMAGING REPORT ---
(LIVER) ABDOMEN LIMITED HISTORY: 82 years-old Female ELEVATED LFT'S,NO ALCOHOL USE COMPARISON: CT abdomen and pelvis 11/09/2006 TECHNIQUE: Multiple real-time sonographic images of the abdominal right upper quadrant were obtained assessing grayscale appearance and color flow FINDINGS: Imaged pancreas appears mildly atrophic without focal abnormality. Distal body and tail are secured by bowel gas. Nonspecific slightly echogenic appearance of the liver without marginal nodularity, focal mass or intrahepatic biliary ductal dilation. Multiple shadowing gallstones are seen within the gallbladder lumen. No wall thickening or pericholecystic fluid collections. Common bile duct is normal, 4 mm. Imaged right kidney measures up to 9.6 cm in length and is within normal limits without hydronephrosis. IMPRESSION: 1. Mildly echogenic appearance of the liver is nonspecific and may reflect fibrosis or hepatic steatosis. 2. Cholelithiasis without sonographic evidence of acute cholecystitis. 3. No biliary ductal dilation. The above report was generated using voice recognition software. It may contain grammatical, syntax or spelling errors. Electronically signed by: Tutu Nassar M.D. 04/26/2017 9:09 AM Dictated Date/Time: 04/26/2017 9:05 AM
== END | disposition home or self-care (01) ==
LOC: C.ULTR 08:30
PROVIDERS: ATTEND Internal Medicine Hospice and Palliative Medicine
DX: K80.20 Calculus of gallbladder without cholecystitis without obstruction (principal); R94.5 Abnormal results of liver function studies

== ENCOUNTER → 2017-05-16 | Outpatient (CLI) | payer BC ==
--- NOTE | 2017-05-16 13:01 | MAMMOGRAPHY REPORT ---
BILATERAL DIGITAL SCREENING MAMMOGRAM TOMOSYNTHESIS WITH CAD: 05/16/2017 CLINICAL HISTORY: Routine screening. Patient has no complaints. TECHNIQUE: Breast tomosynthesis in addition to standard 2D mammography was performed. Current study was also evaluated with a Computer Aided Detection (CAD) system. COMPARISON: Comparison is made to exams dated: 05/13/2016 mammogram, 05/13/2015 mammogram, 05/12/2014 m ammogram, 05/09/2013 mammogram, 05/08/2012 mammogram, and 04/28/2009 mammogram - [facility]ter. BREAST COMPOSITION: There are scattered areas of fibroglandular density in both breasts. FINDINGS: There is stable focal asymmetry in the upper outer middle to posterior left breast. Scatte red benign-appearing round, rim and coarse calcifications. Mild vascular calcification in the breast s. No suspicious mass, architectural distortion or cluster of microcalcifications is seen. IMPRESSION: ACR BI-RADS CATEGORY 1: NEGATIVE There is no mammographic evidence of malignancy. A 1 year screening mammogram is recommended. The pa tient will receive written notification of the results. Approximately 10% of breast cancers are not detected with mammography. A negative mammographic report should not delay biopsy if a clinically suggestive mass is present. Mariela Nicole M.D. ay/:05/16/2017 10:19:36 [employer] Set Up Mechanic: Lara SHARMA)(G[place]), [facility] letter sent: Normal 1/2 BI-RADS Code: ACR BI-RADS Category 1: Negative
== END | disposition home or self-care (01) ==
LOC: C.MAMM 09:38
PROVIDERS: ATTEND Obstetrics & Gynecology
DX: Z12.31 Encounter for screening mammogram for malignant neoplasm of breast (principal)